=== PATIENT | female | born 1995 | race Caucasian/White ===

== ENCOUNTER 2017-02-06 23:01 | Emergency (ER) | payer MEDICAID ==
[~2017-02-06 23:01] MED LIST: PREN-88 PO
== END 2017-02-07 08:32 | disposition left against medical advice (07) ==
LOC: ER 02-07 07:51
DX: R10.9 Unspecified abdominal pain (principal); Z53.21 Procedure and treatment not carried out due to patient leaving prior to being seen by health care provider

== ENCOUNTER 2019-08-25 23:06 | Observation (INO) | payer MEDICAID, OTHER ==
[~2019-08-25] VITALS: Ht 149.9 cm; Wt 59.0 kg
[2019-08-26] MEDS ORDERED: ACETAMINOPHEN 500MG TABLET PO NR (01:15)
[2019-08-26] MEDS ORDERED: TERBUTALINE SULFATE 1MG/ML VIAL SUBCUT NR (01:15)
[2019-08-26 01:48] LABS: CLARITY URINE CLEAR (CLEAR); COLOR URINE YELLOW (YELLOW); KETONES URINE NEGATIVE (NEGATIVE); LEUKOCYTE ESTERASE URINE NEGATIVE (NEGATIVE); NITRITE URINE NEGATIVE (NEGATIVE); OCCULT BLOOD URINE NEGATIVE (NEGATIVE); PH URINE 7.5 (4.5-8.0); PROTEIN URINE NEGATIVE (NEGATIVE); SPECIFIC GRAVITY URINE 1.003 (1.005-1.030); UROBILINOGEN URINE 0.2 E.U./dL (0.2-1.0)
[2019-08-26 01:56] LABS: *AMPHETAMINES SCREEN URINE NEGATIVE (NEGATIVE); *BARBITURATES SCREEN URINE NEGATIVE (NEGATIVE); *BENZODIAZEPINES SCREEN URINE NEGATIVE (NEGATIVE); *COCAINE SCREEN URINE NEGATIVE (NEGATIVE); METHADONE URINE SCREEN NEGATIVE (NEGATIVE)
[2019-08-26 01:57] LABS: CANNABINOID URINE SCREEN NEGATIVE (NEGATIVE); OPIATES URINE SCREEN NEGATIVE (NEGATIVE); PHENCYCLIDINE URINE SCREEN NEGATIVE (NEGATIVE)
== END 2019-08-26 02:30 | disposition home or self-care (01) ==
LOC: 8 EST LDRP 23:06
PROVIDERS: ADMIT Obstetrics & Gynecology; ATTEND Obstetrics & Gynecology
DX: O9A.213 Injury, poisoning and certain other consequences of external causes complicating pregnancy, third trimester (principal); O26.893 Other specified pregnancy related conditions, third trimester; R10.9 Unspecified abdominal pain; V49.9XXA Car occupant (driver) (passenger) injured in unspecified traffic accident, initial encounter; Y93.9 Activity, unspecified; Y92.410 Unspecified street and highway as the place of occurrence of the external cause; Y99.9 Unspecified external cause status
CPT/HCPCS: 76805; 76818; 80305; 81003; 96372; 99281; G0378; J3105

== ENCOUNTER 2025-02-11 11:49 | Emergency (ER) | payer MEDICAID, OTHER ==
[~2025-02-11] VITALS: Ht 160 cm; Wt 59.0 kg
[~2025-02-11 11:49] MED LIST changes: +CITA10SO PO
[2025-02-11 11:52] VITALS: O2SAT 98
[2025-02-11 12:01] VITALS: BP 126/83; PULSE 119; RESP 22; TEMP 36.4; O2SAT 98
== END 2025-02-11 13:50 | disposition left against medical advice (07) ==
LOC: ER 11:49
DX: F41.9 Anxiety disorder, unspecified (principal); R07.89 Other chest pain; Z53.21 Procedure and treatment not carried out due to patient leaving prior to being seen by health care provider
CPT/HCPCS: 93005